=== PATIENT | male | born 1950 | race Caucasian/White ===

== ENCOUNTER 2020-02-16 22:51 | Observation (INO) ==
[2020-02-16] MEDS ORDERED: NS 0.9% 1000 ml BAG 1,000 ML IV ONE (22:58)
[2020-02-16 23:13] LABS: ABS Basophils 0.1 10^3/ul (0-0.2); ABS Eosinophils 0.3 10^3/ul (0-0.6); ABS Lymphocytes 3.2 10^3/ul (1.0-4.8); ABS Monocytes 1.1 10^3/ul (0-0.8); ABS Neutrophils 5.8 10^3/ul (1.5-7.7); Eosinophil % 2.6 %; Hematocrit 41 % (42-52); Hemoglobin 14.2 g/dL (14.0-18.0); Lymphocyte % 30.3 %; Mean Corpuscular HGB Conc 35 g/dL (31-36); Mean Corpuscular Hemoglobin 32 pg (27-31); Mean Corpuscular Volume 91 fL (80-94); Mean Platelet Volume 8.5 fL (7.4-10.4); Nucleated Red Blood Cells % 0.1; Platelet Count 289 10^3/uL (150-450); Red Blood Count 4.49 10^6 /uL (4.18-5.48); Red Cell Distribution Width 14 % (10-15); White Blood Count 10.5 10^3/uL (3.5-10.8)
[2020-02-16] MEDS ORDERED: Iodixanol (CONTRAST) 320 MG/ML 100 ML SDV IV ONE (23:16)
[2020-02-16 23:22] LABS: Activated Partial Thrombo Time 28.2 seconds (26.0-38.0); INR 1.05 (0.82-1.09)
[2020-02-16 23:28] LABS: ALT 25 U/L (7-52); AST 18 U/L (13-39); Albumin 3.9 g/dL (3.2-5.2); Albumin/Globulin Ratio 1.3 (1-3); Alkaline Phosphatase 79 U/L (34-104); Anion Gap 7 mmol/L (2-11); Blood Urea Nitrogen 14 mg/dL (6-24); CO2 Carbon Dioxide 28 mmol/L (22-32); Calcium 9.6 mg/dL (8.6-10.3); Chloride 103 mmol/L (101-111); Cholesterol 138 mg/dL; EGFR African American 89.6 (>60); EGFR Non-African American 74.1 (>60); Globulin 3.1 g/dL (2-4); Glucose 142 mg/dL (70-100); HDL Cholesterol 29.3 mg/dL; Potassium 3.9 mmol/L (3.5-5.0); Sodium 138 mmol/L (135-145); Triglycerides 538 mg/dL
[2020-02-16 23:30] LABS: Troponin I 0.01 ng/mL (<0.03)
[2020-02-16 23:43] LABS: LDL Cholesterol Direct 57 mg/dL
[2020-02-16 23:54] LABS: Alcohol, S < 10 mg/dL (<10)
[2020-02-17] MEDS ORDERED: Enoxaparin 40 MG/0.4 ML SYR SUBCUT SCH (02:00)
[2020-02-17] MEDS ORDERED: Dextrose 50% Syringe 50 ml 25 GM/50 ML SYRINGE IV PUSH PRN (02:22)
[2020-02-17] MEDS ORDERED: Aspirin EC 81 mg TAB.EC (enteric coated) PO SCH (09:00)
[2020-02-17] MEDS ORDERED: Influenza VAC *QUAD* 2020-21* 0.5 ML SYRINGE IM ONE (09:00)
[2020-02-17] MEDS ORDERED: Perflutren Lipid Microsphere 3 ML VIAL ONE (10:37)
[2020-02-17 16:00] VITALS: BP 125/60
[2020-02-17 17:32] LABS: Vitamin B12 806 pg/mL (180-914)
[2020-02-18] MEDS ORDERED: Enoxaparin 40 MG/0.4 ML SYR SUBCUT SCH (08:00)
== END 2020-02-17 19:44 | disposition home or self-care (01) ==
LOC: MEDTELE 22:51 → ED 22:51 → MEDTELE 02-17 08:18
PROVIDERS: ADMIT Internal Medicine; ATTEND Hospitalist

== ENCOUNTER 2020-12-19 13:05 | Observation (INO) ==
[2020-12-19] MEDS ORDERED: NS 0.9% 1000 ml BAG 1,000 ML IV ONE (13:09)
[2020-12-19 13:23] LABS: ABS Basophils 0.1 10^3/ul (0-0.2); ABS Eosinophils 0.2 10^3/ul (0-0.6); ABS Lymphocytes 2.9 10^3/ul (1.0-4.8); ABS Monocytes 0.8 10^3/ul (0-0.8); ABS Neutrophils 7.3 10^3/ul (1.5-7.7); Hematocrit 42 % (42-52); Hemoglobin 14.3 g/dL (14.0-18.0); Lymphocyte % 25.6 %; Mean Corpuscular HGB Conc 34 g/dL (31-36); Mean Corpuscular Hemoglobin 31 pg (27-31); Mean Corpuscular Volume 91 fL (80-94); Mean Platelet Volume 8.3 fL (7.4-10.4); Platelet Count 376 10^3/uL (150-450); Red Blood Count 4.64 10^6 /uL (4.18-5.48); Red Cell Distribution Width 15 % (10-15); White Blood Count 11.2 10^3/uL (3.5-10.8)
[2020-12-19] MEDS ORDERED: Iodixanol (CONTRAST) 320 MG/ML 100 ML SDV IV ONE (13:25)
[2020-12-19 13:35] LABS: Activated Partial Thrombo Time 26.6 seconds (26.0-38.0); INR 1.07 (0.86-1.15)
[2020-12-19 13:38] LABS: Albumin 4.1 g/dL (3.2-5.2); Albumin/Globulin Ratio 1.2 (1-3); Calcium 9.4 mg/dL (8.6-10.3); EGFR African American 99.7 (>60); EGFR Non-African American 82.4 (>60); Globulin 3.4 g/dL (2-4); HDL Cholesterol 26.9 mg/dL; Potassium 4.2 mmol/L (3.5-5.0); Total Bilirubin 0.6 mg/dL (0.2-1.0); Total Protein 7.5 g/dL (6.4-8.9)
[2020-12-19 13:39] LABS: Troponin I 0.01 ng/mL (<0.03)
[2020-12-19 17:06] LABS: Magnesium 1.8 mg/dL (1.9-2.7)
[2020-12-19 19:11] LABS: TSH Ultra Thyroid Stim Horm 3.34 mcIU/mL (0.34-5.60)
[2020-12-19] MEDS: ICOSAPENT ETHYL 1 GM CAPSULE (NF) PO SCH (20:12)
[2020-12-19] MEDS ORDERED: Dextrose 50% Syringe 50 ml 25 GM/50 ML SYRINGE IV PUSH PRN (23:17)
[2020-12-20] MEDS: ICOSAPENT ETHYL 1 GM CAPSULE (NF) PO SCH (07:31)
[2020-12-20] MEDS ORDERED: Cholecalciferol (VIT D3) 1,000 unit TAB PO SCH (09:00)
[2020-12-20 12:30] VITALS: BP 131/55
== END 2020-12-20 15:50 | disposition home or self-care (01) ==
LOC: ED 13:05 → MEDTELE 13:05
PROVIDERS: ADMIT Internal Medicine; ATTEND Internal Medicine